=== PATIENT | male | born 1945 | race Caucasian/White ===

== ENCOUNTER → 2019-08-01 | Outpatient (CLI) | payer MEDICARE, BC ==
[~2019-08-01] MED LIST: AMOXICILLIN875 MG PO; ASPIRIN EC81 M1 PO; FLONASE 0.05%50 MCG NASAL; MUCINEX D TABL1 EAC1 PO; PRINIVIL20 MG PO
== END ==
LOC: M.RAD 14:16
DX: J98.4 Other disorders of lung (principal); J34.89 Other specified disorders of nose and nasal sinuses; M47.814 Spondylosis without myelopathy or radiculopathy, thoracic region; M47.812 Spondylosis without myelopathy or radiculopathy, cervical region; M48.02 Spinal stenosis, cervical region; M25.78 Osteophyte, vertebrae

== ENCOUNTER 2020-09-18 00:51 | Emergency (ER) | payer MEDICARE, BC ==
[~2020-09-18] VITALS: Ht 172.7 cm; Wt 77.1 kg
[2020-09-18 01:06] VITALS: BP 142/85
[2020-09-18] MEDS ORDERED: LEVOXYL50 MCG PO (01:09)
== END 2020-09-18 01:42 | disposition home or self-care (01) ==
LOC: M.ERS 00:51
DX: T16.1XXA Foreign body in right ear, initial encounter (principal); I10 Essential (primary) hypertension; Z90.49 Acquired absence of other specified parts of digestive tract; X58.XXXA Exposure to other specified factors, initial encounter; Y93.89 Activity, other specified; Y92.89 Other specified places as the place of occurrence of the external cause; Y99.8 Other external cause status